=== PATIENT | female | born 1985 | race Caucasian/White ===

== ENCOUNTER → 2021-03-04 14:38 | Outpatient (BNVA) | payer OTHER, SELFPAY | PROVIDERS: Visit Provider Obstetrics & Gynecology | DX: Z12.4 Encounter for screening for malignant neoplasm of cervix (principal); N90.60 Unspecified hypertrophy of vulva | CPT/HCPCS: 88175 ==

== ENCOUNTER 2022-02-27 10:02 | Outpatient (CLI) | payer OTHER, SELFPAY ==
--- NOTE | 2022-02-27 10:11 | US_ITS ---
WS: [id number] ULTRASOUND LEFT BREAST HISTORY: N63.20 - Unspecified lump in the left breast, unspecified... COMPARISON: None available. TECHNIQUE: 2-D and Doppler. 2 palpable areas are present in the LEFT breast. At 1:00, 3 cm from the nipple is a hypoechoic nodule which is well-circumscribed and no increased vascularity measuring 1.1 x 0.6 x 1.0 cm. There is an a dditional solid hypoechoic mass at 1:00, 4 cm from the nipple measuring 1.5 x 1.0 x 2.1 cm. No increa sed vascularity. US/US breast LT limited* [id number] IMPRESSION: BI-RADS: 0-Incomplete: Need additional imaging evaluation FOLLOW-UP: Need Additional Imaging Follow-up bilateral diagnostic mammogram is recommended in a patient in this ag e group with palpable abnormalities. Diagnostic mammogram needs to be obtained. If there are additional abnormalities on the mammogram additional ultrasound m ay be necessary. By ultrasound favor these masses may be fibroadenomas. The dif ferential may change with diagnostic mammography imaging.
== END 2022-02-27 10:03 | disposition home or self-care (01) ==
LOC: RAD 10:03
PROVIDERS: Visit Provider Obstetrics & Gynecology
DX: N63.20 Unspecified lump in the left breast, unspecified quadrant (principal)
CPT/HCPCS: 76642

== ENCOUNTER 2022-03-04 07:25 | Outpatient (CLI) | payer OTHER, SELFPAY ==
--- NOTE | 2022-03-04 07:39 | MM_ITS ---
WS: [id number] DIAGNOSTIC BILATERAL 3D TOMOSYNTHESIS DIGITAL MAMMOGRAM WITH CAD HISTORY: Palpable nodules LEFT breast. COMPARISON: LEFT breast ultrasound performed on 02/27/2022. TECHNIQUE: Bilateral craniocaudad, mediolateral oblique, and mediolateral views are submitted. Spot c ompression LEFT MLO. Computer aided detection utilized. Breast composition: The breasts are extremely dense, which lowers the sensitivity of mammography. Tri angular marker is placed in the upper outer quadrant of the LEFT breast in the site of the palpable a bnormality. There is very dense fibroglandular tissue partially obscuring the 19 x 7 mm nodule. No ab normality noted within the RIGHT breast. These masses were initially identified by palpation and also on the ultrasound from 02/27/2022. MM/[place] [id number] IMPRESSION: BI-RADS: 4-Suspicious Finding-Biopsy Should Be Considered FOLLOW UP: Biopsy Recommended Ultrasound-guided biopsy is recommended of the LEFT breast nodules noted at 1:0 0. There are 2 nodules for which biopsy should be performed. The most concernin g is at 1:00, 4 cm from the nipple. This is a slightly lobulated mass and corre sponds to the mass noted on mammography and ultrasound. The smaller mass is not definite visualized by mammography.
== END 2022-03-04 07:26 | disposition home or self-care (01) ==
LOC: RAD 07:27
PROVIDERS: Visit Provider Pharmacist
DX: N63.20 Unspecified lump in the left breast, unspecified quadrant (principal); R92.8 Other abnormal and inconclusive findings on diagnostic imaging of breast
CPT/HCPCS: 77062

== ENCOUNTER 2022-03-07 09:32 | Outpatient (CLI) | payer OTHER, SELFPAY ==
--- NOTE | 2022-03-07 09:36 | US_ITS ---
WS: [id number] ULTRASOUND-GUIDED LEFT BREAST BIOPSY x 2 HISTORY: LEFT breast masses. COMPARISON: 02/27/2022 and 03/04/2022 Procedure, risks and complications are explained to the patient. Medications are reviewed. Consent is obtained. Masses in the LEFT breast are localized with ultrasound. LEFT breast mass labeled #1; 1:00, 3 cm from the nipple. LEFT breast mass labeled #2; 1:00: 4 cm from the nipple. Skin is cleansed with ChloraPrep and anesthetized with 1% buffered lidocaine. Small dermatome termina te. Under sterile conditions masses are biopsied with a 14-gauge Achieve needle. Multiple core biopsi es are performed. Material placed in formalin and sent to pathology for review. No complications enco untered. Breast tissue marker (Bard ultrasound enhanced ribbon): Mass labeled #2. Breast tissue marker (SecurMark for Celero): Mass labeled #1. Patient left the radiology suite with no complications. Patient is instructed to return to [facility] or [facility] with any concerns. Note: Both of the masses in the LEFT breast were benign. Due to their size these can be surgically re moved if they are painful or enlarging. US/[place] [id number] IMPRESSION: 1. Uncomplicated core needle biopsy 1:00, 3 cm from the nipple, labeled #1. PATHOLOGY: Benign breast tissue with fibrocystic changes. Negative for malignan cy. RECOMMENDATION: No additional imaging necessary at this time. 1. Uncomplicated core needle biopsy 1:00, 4 cm from the nipple, labeled #2. PATHOLOGY: Benign fibroadenoma. Negative for malignancy. RECOMMENDATION: No additional imaging necessary at this time.
--- NOTE | 2022-03-07 10:52 | US_ITS ---
WS: [id number] ULTRASOUND-GUIDED LEFT BREAST BIOPSY x 2 HISTORY: LEFT breast masses. COMPARISON: 02/27/2022 and 03/04/2022 Procedure, risks and complications are explained to the patient. Medications are reviewed. Consent is obtained. Masses in the LEFT breast are localized with ultrasound. LEFT breast mass labeled #1; 1:00, 3 cm from the nipple. LEFT breast mass labeled #2; 1:00: 4 cm from the nipple. Skin is cleansed with ChloraPrep and anesthetized with 1% buffered lidocaine. Small dermatome termina te. Under sterile conditions masses are biopsied with a 14-gauge Achieve needle. Multiple core biopsi es are performed. Material placed in formalin and sent to pathology for review. No complications enco untered. Breast tissue marker (Bard ultrasound enhanced ribbon): Mass labeled #2. Breast tissue marker (SecurMark for Celero): Mass labeled #1. Patient left the radiology suite with no complications. Patient is instructed to return to [facility] or [facility] with any concerns. Note: Both of the masses in the LEFT breast were benign. Due to their size these can be surgically re moved if they are painful or enlarging. US/[place] [id number] IMPRESSION: 1. Uncomplicated core needle biopsy 1:00, 3 cm from the nipple, labeled #1. PATHOLOGY: Benign breast tissue with fibrocystic changes. Negative for malignan cy. RECOMMENDATION: No additional imaging necessary at this time. 1. Uncomplicated core needle biopsy 1:00, 4 cm from the nipple, labeled #2. PATHOLOGY: Benign fibroadenoma. Negative for malignancy. RECOMMENDATION: No additional imaging necessary at this time.
== END 2022-03-07 09:33 | disposition home or self-care (01) ==
PROVIDERS: Visit Provider Obstetrics & Gynecology
DX: N63.20 Unspecified lump in the left breast, unspecified quadrant (principal)
CPT/HCPCS: 19083; 19084; 88305